=== PATIENT | male | born 1965 | race Caucasian/White ===

== ENCOUNTER 2021-04-02 02:32 | Emergency (ER) | payer BC ==
[2021-04-02 03:57] LABS: Absolute Lymphocytes (CBC) 2.5 K/uL (0.7-4.9); Basophils % 0.3 % (0-1.3); Hematocrit 49.5 % (39.6-49.0); Lymphocytes % 46.1 % (15.3-44.8); MPV 7.4 fL (7.6-11.3); RBC Red Blood Cell Count 5.62 M/uL (4.33-5.43)
[2021-04-02] MEDS ORDERED: NA CHLORIDE 0.9% 1,000 ML ONE (04:11)
[2021-04-02 04:19] LABS: ALT/SGPT 56 U/L (12-78); AST/SGOT 29 U/L (15-37); Albumin 3.8 g/dL (3.4-5.0); Alkaline Phosphatase 51 U/L (45-117); BUN Blood Urea Nitrogen 21 mg/dL (7-18); Bicarbonate 28 mmol/L (21-32); Bilirubin Direct < 0.1 mg/dL (0-0.2); Bilirubin Total 0.2 mg/dL (0.2-1.0); Glucose Level 127 mg/dL (74-106); Lipase 1407 U/L (73-393); Potassium 4.1 mmol/L (3.5-5.1); Protein, Total 7.5 g/dL (6.4-8.2); Sodium Level 142 mmol/L (136-145)
[2021-04-02] MEDS ORDERED: ONDANSETRON 4 MG/2 ML VIAL ONE (04:25)
[2021-04-02] MEDS ORDERED: MORPHINE 4 MG/ML SYR ONE (04:25)
[2021-04-02 04:54] LABS: Urine Blood Trace-intact (Negative); Urine Glucose Negative (Negative); Urine Protein Negative (Negative); Urine Specific Gravity >=1.030 (1.005-1.030)
[2021-04-02 04:54] LABS: Blood Morphology Comment NOT SEEN (NOT SEEN); Platelet Estimate ADEQ
--- NOTE | 2021-04-02 05:44 | ER ---
Nurse's Notes [facility] Name: Marcin Peacock Age: 55 yrs Sex: Male : 1965 Arrival Date: 04/02/2021 Time: 02:35 Bed 23 Private MD: Diagnosis: Infectious gastroenteritis and colitis, unspecified-and pancreatitis Presentation: 04/02 02:47 Chief complaint: Patient states: abdominal pain that started last Thursday but went away, em pain started back up this morning, reports nausea, denies V/D or fever. Coronavirus screen: Vaccine status: Patient reports receiving the 2nd dose of the covid vaccine. Ebola Screen: Patient negative for fever greater than or equal to 101.5 degrees Fahrenheit, and additional compatible Ebola Virus Disease symptoms Patient denies exposure to infectious person. Patient denies travel to an Ebola-affected area in the 21 days before illness onset. No symptoms or risks identified at this time. Initial Sepsis Screen: Does the patient meet any 2 criteria? No. Patient's initial sepsis screen is negative. Does the patient have a suspected source of infection? No. Patient's initial sepsis screen is negative. Risk Assessment: Do you want to hurt yourself or someone else? Patient reports no desire to harm self or others. Onset of symptoms was April 02, 2021. 02:47 Method Of Arrival: Ambulatory em 02:47 Acuity: NICOLE 3 em Historical: - Allergies: 02:49 No Known Allergies; em - PMHx: 02:49 Hypertensive disorder; em - PSHx: 03:02 None; em - Immunization history:: Adult Immunizations up to date. - Social history:: Smoking status: Patient denies any tobacco usage or history of. Patient/guardian denies using alcohol, street drugs, The patient lives with family. - Family history:: not pertinent. Screenin:05 Abuse screen: Denies threats or abuse. Nutritional screening: No deficits noted. cc4 Tuberculosis screening: No symptoms or risk factors identified. Fall Risk None identified. Assessment: 03:05 General: Appears uncomfortable, Behavior is calm, cooperative. Pain: Complains of pain cc4 in abdomen Pain does not radiate. Pain currently is 4 out of 10 on a pain scale. at worst was 10 out of 10 on a pain scale. level that patient reports is acceptable is 0 out of 10 on a pain scale. Quality of pain is described as crampy, with nausea. Neuro: No deficits noted. Level of Consciousness is awake, alert, obeys commands, Oriented to person, place, time, situation. Cardiovascular: Denies chest pain. Respiratory: No deficits noted. Airway is patent Breath sounds are clear bilaterally. GI: Abdomen is round Bowel sounds present X 4 quads. Abd is soft Abdomen is tender to palpation in right upper quadrant Patient currently denies diarrhea. : No signs and/or symptoms were reported regarding the genitourinary system. EENT: No deficits noted. Eyes clear. Nares are clear Oral mucosa is dry. Derm: No deficits noted. Skin is intact. Musculoskeletal: No deficits noted. Capillary refill < 3 seconds, Range of motion: intact in all extremities. 03:10 Reassessment: No changes from previously documented assessment. Dr. Thao in to see cc4 with new orders received; # 20 g angiocath inserted right AC x 1 attempt with blood drawn \T\ sent to lab; refusing pain/antiemetic \T\ present time. 03:25 Reassessment: Reports reoccurring pain of abdomen \T\ agreeable to pain medication; cc4 morphine 4 mg \T\ zofran 4 mg given IVP as ordered for pain/nausea; no vomiting noted. 03:30 Reassessment: US in \T\ bedside to do US of abdomen. cc4 04:57 Reassessment: Resting quietly; reports relief of abdominal pain; NAD. cc4 06:00 Reassessment: Patient appears in no apparent distress at this time. Awake/alert; voices cc4 no complaints; reports relief of nausea/pain; VSS. Vital Signs: 02:47 BP 148 / 92; Pulse 83; Resp 18; Temp 97.8(O); Pulse Ox 97% on R/A; Weight 104.33 kg; em Height 5 ft. 10 in. (177.80 cm); Pain 2/10; 03:05 BP 137 / 103; Pulse 89; Resp 20; Pulse Ox 98% on R/A; cc4 03:30 BP 136 / 84; Pulse 84; Resp 18; Pulse Ox 100% on R/A; cc4 04:00 BP 133 / 90; Pulse 75; Resp 20; Pulse Ox 99% on R/A; cc4 05:18 BP 121 / 78; Pulse 77; Resp 18; Pulse Ox 97% ; cc4 06:00 BP 129 / 82; Pulse 71; Resp 20; Temp 96.6; Pulse Ox 99% on R/A; cc4 02:47 Body Mass Index 33.00 (104.33 kg, 177.80 cm) em ED Course: 02:35 Patient arrived in ED. ja2 02:47 Laura Thao MD is Attending Physician. ma2 02:47 Monalisa Davalos, MICHELLE is Primary Nurse. cc4 02:49 Triage completed. em 02:49 Arm band placed on. em 03:05 Patient has correct armband on for positive identification. Bed in low position. Call cc4 light in reach. Side rails up X 1. 03:10 Basic Metabolic Panel Sent. cc4 03:10 CT Abd/Pelvis - IV Contrast Only Sent. cc4 03:11 Basic Metabolic Panel Sent. cc4 03:11 CBC with Diff Sent. cc4 03:11 Hepatic Function Sent. cc4 03:11 Lipase Sent. cc4 03:33 US Abdomen Limited Sent. cc4 03:47 US Abdomen Limited In Process Unspecified. EDMS 04:45 CT Abd/Pelvis - IV Contrast Only In Process Unspecified. EDMS 04:54 Urine Dipstick-Ancillary Sent. cc4 04:54 Manual Differential Sent. cc4 05:43 Sharif Huffman MD is Referral Physician. ma2 Administered Medications: 03:10 Drug: NS 0.9% 1000 ml Route: IV; Rate: 1 bolus; Site: right antecubital; cc4 06:00 Follow up: IV Status: Completed infusion; IV Intake: 1000ml cc4 03:25 Drug: morphine 4 mg Route: IVP; Site: right antecubital; cc4 06:00 Follow up: Response: No adverse reaction; Pain is decreased cc4 03:25 Drug: Zofran (Ondansetron) 4 mg Route: IVP; Site: right antecubital; cc4 06:00 Follow up: Response: No adverse reaction; Pain is decreased cc4 06:00 Follow up: Response: No adverse reaction; Nausea is decreased cc4 Intake: 06:00 IV: 1000ml; Total: 1000ml. cc4 Outcome: 05:44 Discharge ordered by . ma2 06:46 Patient left the ED. cc4 Signatures: Dispatcher [employer] Terence Treadwell, RN RN Laura Goldman MD MD ar2 Dee Dee Garcia Christie, RN RN cc4
--- NOTE | 2021-04-02 05:45 | EDPHYS ---
Physician Documentation [facility] Name: Marcin Peacock Age: 55 yrs Sex: Male : 1965 Arrival Date: 04/02/2021 Time: 02:35 Bed 23 Private MD: ED Physician Laura Thao HPI: 04/02 03:02 This 55 yrs old Male presents to ER via Ambulatory with complaints of ma2 Abdominal Pain. 03:02 The patient presents with abdominal pain. Onset: The symptoms/episode began/occurred ma2 gradually, 1 day(s) ago. Associated signs and symptoms: Pertinent negatives: anorexia, diarrhea, dysuria, headache, vomiting, vomiting blood. Severity of pain: At its worst the pain was moderate in the emergency department the pain is unchanged. The patient has not experienced similar symptoms in the past. Historical: - Allergies: 02:49 No Known Allergies; em - PMHx: 02:49 Hypertensive disorder; em - PSHx: 03:02 None; em - Immunization history:: Adult Immunizations up to date. - Social history:: Smoking status: Patient denies any tobacco usage or history of. Patient/guardian denies using alcohol, street drugs, The patient lives with family. - Family history:: not pertinent. ROS: 03:02 Constitutional: Negative for fever, chills, and weight loss. ma2 03:02 All other systems are negative. Exam: 03:02 Constitutional: This is a well developed, well nourished patient who is awake, alert, ma2 and in no acute distress. Head/Face: Normocephalic, atraumatic. Eyes: Pupils equal round and reactive to light, extra-ocular motions intact. Lids and lashes normal. Conjunctiva and sclera are non-icteric and not injected. Cornea within normal limits. Periorbital areas with no swelling, redness, or edema. ENT: Nares patent. No nasal discharge, no septal abnormalities noted. Tympanic membranes are normal and external auditory canals are clear. Oropharynx with no redness, swelling, or masses, exudates, or evidence of obstruction, uvula midline. Mucous membranes moist. Neck: Trachea midline, no thyromegaly or masses palpated, and no cervical lymphadenopathy. Supple, full range of motion without nuchal rigidity, or vertebral point tenderness. No Meningismus. Chest/axilla: Normal chest wall appearance and motion. Nontender with no deformity. No lesions are appreciated. Cardiovascular: Regular rate and rhythm with a normal S1 and S2. No gallops, murmurs, or rubs. Normal PMI, no JVD. No pulse deficits. Respiratory: Lungs have equal breath sounds bilaterally, clear to auscultation and percussion. No rales, rhonchi or wheezes noted. No increased work of breathing, no retractions or nasal flaring. Abdomen/GI: Soft, non-tender, with normal bowel sounds. No distension or tympany. No guarding or rebound. No evidence of tenderness throughout. Back: No spinal tenderness. No costovertebral tenderness. Full range of motion. MS/ Extremity: Pulses equal, no cyanosis. Neurovascular intact. Full, normal range of motion. Neuro: Awake and alert, GCS 15, oriented to person, place, time, and situation. Cranial nerves II-XII grossly intact. Motor strength 5/5 in all extremities. Sensory grossly intact. Cerebellar exam normal. Normal gait. Vital Signs: 02:47 BP 148 / 92; Pulse 83; Resp 18; Temp 97.8(O); Pulse Ox 97% on R/A; Weight 104.33 kg; em Height 5 ft. 10 in. (177.80 cm); Pain 2/10; 03:05 BP 137 / 103; Pulse 89; Resp 20; Pulse Ox 98% on R/A; cc4 03:30 BP 136 / 84; Pulse 84; Resp 18; Pulse Ox 100% on R/A; cc4 04:00 BP 133 / 90; Pulse 75; Resp 20; Pulse Ox 99% on R/A; cc4 05:18 BP 121 / 78; Pulse 77; Resp 18; Pulse Ox 97% ; cc4 06:00 BP 129 / 82; Pulse 71; Resp 20; Temp 96.6; Pulse Ox 99% on R/A; cc4 02:47 Body Mass Index 33.00 (104.33 kg, 177.80 cm) em MDM: 02:47 Patient medically screened. ma2 03:02 Differential diagnosis: appendicitis, cholecystitis, Cholelithiasis, diverticulitis, ma2 gastritis. 05:42 Data reviewed: vital signs, nurses notes. Counseling: I had a detailed discussion with [facility] the patient and/or guardian regarding: the historical points, exam findings, and any diagnostic results supporting the discharge/admit diagnosis, the presence of at least one elevated blood pressure reading (>120/80) during this emergency department visit, the need for outpatient follow up. Response to treatment: the patient's symptoms have markedly improved after treatment. ED course: i recommend admission for pancreatitis however patient would like to be discharged despite the recommendation. he understands risks of going home against medical recommendation, will see gi doctor and return to er for any worsening . 04/02 02:51 Order name: Basic Metabolic Panel [facility] 04/02 02:51 Order name: CBC with Diff; Complete Time: 05:05 [facility] 04/02 02:51 Order name: Hepatic Function; Complete Time: 04:47 [facility] 04/02 02:51 Order name: Lipase; Complete Time: 04:47 [facility] 04/02 02:51 Order name: Basic Metabolic Panel; Complete Time: 04:47 [facility] 04/02 04:05 Order name: Manual Differential; Complete Time: 05:05 [facility] 04/02 02:51 Order name: IV Saline Lock; Complete Time: 03:11 [facility] 04/02 02:51 Order name: Labs collected and sent; Complete Time: 03:11 [facility] 04/02 02:51 Order name: CT Abd/Pelvis - IV Contrast Only [facility] 04/02 03:03 Order name: US Abdomen Limited [facility] 04/02 04:53 Order name: Urine Dipstick-Ancillary; Complete Time: 05:05 [facility] 04/02 02:51 Order name: Urine Dipstick-Ancillary (obtain specimen); Complete Time: 04:54 [facility] Administered Medications: 03:10 Drug: NS 0.9% 1000 ml Route: IV; Rate: 1 bolus; Site: right antecubital; cc4 06:00 Follow up: IV Status: Completed infusion; IV Intake: 1000ml cc4 03:25 Drug: morphine 4 mg Route: IVP; Site: right antecubital; cc4 06:00 Follow up: Response: No adverse reaction; Pain is decreased cc4 03:25 Drug: Zofran (Ondansetron) 4 mg Route: IVP; Site: right antecubital; cc4 06:00 Follow up: Response: No adverse reaction; Pain is decreased cc4 06:00 Follow up: Response: No adverse reaction; Nausea is decreased cc4 Disposition Summary: 04/02/21 05:44 Discharge Ordered Location: Home ma2 Condition: Stable ma2 Diagnosis - Infectious gastroenteritis and colitis, unspecified - and pancreatitis ma2 Followup: ma2 - With: - When: Tomorrow - Reason: If symptoms return, Continuance of care Discharge Instructions: - Discharge Summary Sheet ma2 - Acute Pancreatitis ma2 - Viral Gastroenteritis, Adult, [id number] ma2 Forms: - Medication Reconciliation Form ma2 - Thank You Letter ma2 - Antibiotic Education ma2 - Prescription Opioid Use ma2 Prescriptions: - Zofran 4 mg Oral Tablet - take 1 tablet by ORAL route every 12 hours As needed; 20 tablet; Refills: 0, ma2 Product Selection Permitted - Diclofenac Sodium 75 mg Oral Tablet Sustained Release - take 1 tablet by ORAL route 2 times per day; 30 tablet; Refills: 0, Product ma2 Selection Permitted Signatures: Dispatcher [employer] Terence Treadwell RN RN em Alzahri, Mohammad, MD MD al2 Monalisa Davalos RN RN cc4
[2021-04-02 07:10] VITALS: BP 129/82; TEMP 96.6; O2SAT 99
--- NOTE | 2021-04-02 07:18 | RAD REPORT ---
EXAM DESCRIPTION: US - Abdomen Exam Limited - 04/02/2021 3:47 am CLINICAL HISTORY: RUQ abd pain;Abd pain COMPARISON: No comparisons FINDINGS: The gallbladder demonstrates no gallstones. No pericholecystic fluid or gallbladder wall t hickening. The common bile duct is normal measuring 3 mm. The liver demonstrates no findings of intrahepatic biliary dilatation. IMPRESSION: Negative for cholelithiasis or acute cholecystitis. No biliary ductal dilatation.
--- NOTE | 2021-04-02 10:29 | RAD REPORT ---
EXAM DESCRIPTION: CT - Abdomen Pelvis W Contrast - 04/02/2021 5:30 am CLINICAL HISTORY: The patient is 55 years old and is Male; ABD PAIN TECHNIQUE: Axial computed tomography images of the abdomen and pelvis with intravenous contrast. S agittal and coronal reformatted images were created and reviewed. This CT exam was performed using one or more of the following dose reduction techniques: automated exposure control, adjustment of t he mA and/or kV according to patient size, and/or use of iterative reconstruction technique. COMPARISON: No relevant prior studies available. FINDINGS: Lung bases: Unremarkable. No mass. No consolidation. ABDOMEN: Liver: Unremarkable. No mass. Gallbladder and bile ducts: Unremarkable. No calcified stones. No ductal dilation. Pancreas: No findings to suggest acute pancreatitis. No mass visualized. No ductal dilation. Spleen: Unremarkable. No splenomegaly. Adrenals: Unremarkable. No mass. Kidneys and ureters: Unremarkable. No solid mass. No hydronephrosis. Stomach and bowel: No definite wall thickening. No bowel dilatation or obstruction. Scattered colonic diverticulosis. No definite gastric wall thickening. PELVIS: Appendix: The visualized appendix is normal. No pericecal inflammation to suggest acute appendic itis. Bladder: Bladder is not well distended. No stones. Reproductive: Unremarkable as visualized. ABDOMEN and PELVIS: Intraperitoneal space: Small amount of free fluid adjacent to the duodenum. Faint mesenteric str anding adjacent to a few proximal jejunal bowel loops. Small amount of free fluid in the pelvis. No free air. Bones/joints: Right L5 spondylolysis. No acute fracture visualized. No dislocation. Soft tissues: Unremarkable. Vasculature: Unremarkable. No abdominal aortic aneurysm. Lymph nodes: No pathologically enlarged lymph nodes. IMPRESSION: Findings raise suspicion for mild enteritis, proximal small bowel. Clinical correlation suggested. Electronically signed by: Pau Reid MD 04/02/2021 5:05 AM CDT Due to temporary technical issues with the PACS/Fluency reporting system, reports are being signed by the in house radiologist without review as a courtesy to ensure prompt reporting. The interpreting r adiologist is fully responsible for the content of the report.
== END 2021-04-02 06:46 | disposition home or self-care (01) ==
LOC: ER 02:32
DX: A09 Infectious gastroenteritis and colitis, unspecified (principal); K85.90 Acute pancreatitis without necrosis or infection, unspecified; I10 Essential (primary) hypertension
CPT/HCPCS: 96361; 85025; 80048; 36415; 80076; 81003; 83690; 74177; 76705; 96375; 96374; 99284; Q9967; J7030; J2405